=== PATIENT | male | born 1945 | race Hispanic/Latino ===

== ENCOUNTER 2018-04-20 09:15 | Day surgery (SDC) | payer MEDICARE, BC ==
[2018-04-20] MEDS ORDERED: Lactated Ringer's 500 ML IV ONE (09:51)
[2018-04-20] MEDS ORDERED: Propofol 10 mg/ml Inj (20 ML) ONE (11:59)
[2018-04-20 12:27] VITALS: TEMP 97; O2SAT 98
[2018-04-20 12:38] VITALS: BP 104/58; PULSE 54; RESP 15
== END 2018-04-20 12:48 | disposition home or self-care (01) ==
LOC: H.ENDO 09:15
PROVIDERS: ATTEND Internal Medicine Gastroenterology
DX: Z86.010 Personal history of colon polyps (principal); E78.5 Hyperlipidemia, unspecified; Z87.891 Personal history of nicotine dependence; D12.4 Benign neoplasm of descending colon; K63.89 Other specified diseases of intestine; K57.30 Diverticulosis of large intestine without perforation or abscess without bleeding
CPT/HCPCS: 45380; 88305; J2001; J2704; J7120